=== PATIENT | male | born 1990 | race Caucasian/White ===

== ENCOUNTER 2022-09-19 12:05 | Inpatient (IN) | payer BC, SELFPAY ==
[~2022-09-19] VITALS: Ht 182.9 cm; Wt 65.9 kg
[2022-09-19 13:21] LABS: HEMATOCRIT 45.3 % (42.0-52.0); HEMOGLOBIN 15.8 g/dl (13.5-17.5); MEAN CORPUSCULAR HEMOGLOBIN 32.3 pg (27.0-33.0); MEAN CORPUSCULAR HGB CONC 34.9 g/dl (32.0-36.5); MEAN CORPUSCULAR VOLUME 92.6 fl (80.0-96.0); PLATELET COUNT, AUTOMATED 282 10^3/uL (150-450); RED BLOOD COUNT 4.89 10^6/uL (4.30-6.10); WHITE BLOOD COUNT 6.8 10^3/uL (4.0-10.0)
[2022-09-19 13:37] LABS: AMPHETAMINES LEVEL URINE NEGATIVE (NEGATIVE); BARBITURATES URINE NEGATIVE (NEGATIVE); BENZODIAZEPINES URINE NEGATIVE (NEGATIVE); COCAINE METABOLITE URINE NEGATIVE (NEGATIVE); METHADONE URINE NEGATIVE (NEGATIVE); PHENCYCLIDINE URINE NEGATIVE (NEGATIVE)
[2022-09-19 13:38] LABS: CANNABINOIDS URINE NEGATIVE (NEGATIVE); OPIATES URINE NEGATIVE (NEGATIVE)
[2022-09-19 13:40] LABS: ETHYL ALCOHOL (ETHANOL) < 0.003 % (0.000-0.010)
[2022-09-19 13:42] LABS: ACETAMINOPHEN LEVEL < 2.0 UG/ML (10.0-20.0); ALBUMIN 4.6 G/DL (3.2-5.2); ALKALINE PHOSPHATASE 62 U/L (46-116); ALT/SGPT 20 U/L (7.0-40); AST/SGOT 12 U/L (<34); BILIRUBIN,DIRECT 0.2 MG/DL (<0.4); BILIRUBIN,TOTAL 0.5 MG/DL (0.3-1.2); BLOOD UREA NITROGEN 11 MG/DL (9-23); CALCIUM LEVEL 9.8 MG/DL (8.5-10.1); CARBON DIOXIDE LEVEL 29 MMOL/L (20-31); CHLORIDE LEVEL 105 MMOL/L (98-107); CREATININE FOR GFR 0.77 MG/DL (0.70-1.30); GLOMERULAR FILTRATION RATE > 60.0 (>60); GLUCOSE, FASTING 89 MG/DL (60-100); SALICYLATE LEVEL < 3.0 MG/DL (<30); SODIUM LEVEL 142 MMOL/L (136-145); TOTAL PROTEIN 7.8 G/DL (5.7-8.2)
[2022-09-19 13:44] LABS: THYROID STIMULATING HORMONE 1.604 uIU/ML (0.55-4.78)
[2022-09-19] MEDS ORDERED: HOME MED LIST COMPLETE! XX SCH (21:50)
[2022-09-19] MEDS ORDERED: BENA25CA4 PO (21:50)
[2022-09-19] MEDS ORDERED: IBUPROFEN 400MG TAB PO PRN (22:20)
[2022-09-19] MEDS ORDERED: MAALOX 30 ML SUSP *UDC PO PRN (22:20)
[2022-09-19] MEDS ORDERED: ACETAMINOPHEN TAB 650MG DOSE (2X325MG) PO PRN (22:20)
[2022-09-19] MEDS ORDERED: MOM 30ML SUSPENSION UDC PO PRN (22:20)
[2022-09-19] MEDS ORDERED: diphenhydrAMINE 25MG CAP PO PRN (22:20)
[2022-09-19] MEDS: traZODone 50 MG TAB PO PRN (23:02)
[2022-09-19 23:17] VITALS: BP 134/80; TEMP 98.4; O2SAT 99
[2022-09-20 06:28] VITALS: BP 92/61; TEMP 98.8; O2SAT 99
[2022-09-20 19:01] VITALS: BP 104/69; TEMP 97.6; O2SAT 99
[2022-09-20 19:02] VITALS: BP 104/69; TEMP 97.6
[2022-09-20] MEDS: traZODone 50 MG TAB PO PRN (20:49)
[2022-09-21 06:29] VITALS: BP 114/67; TEMP 96.8; O2SAT 100
[2022-09-21] MEDS ORDERED: TRAZ-252 PO (09:16)
== END 2022-09-21 11:17 | disposition home or self-care (01) | DRG 754 ==
LOC: M ED 12:05 → M ED INP 22:16 → M PSY 22:57
PROVIDERS: ADMIT Psychiatry & Neurology Psychiatry; ATTEND Psychiatry & Neurology Psychiatry
DX: F32.A Depression, unspecified (principal); F41.1 Generalized anxiety disorder; F43.25 Adjustment disorder with mixed disturbance of emotions and conduct; F12.90 Cannabis use, unspecified, uncomplicated; G47.00 Insomnia, unspecified